=== PATIENT | female | born 1945 | race Caucasian/White ===

== ENCOUNTER 2022-04-16 17:56 | Emergency (ER) | payer MEDICARE, OTHER, SELFPAY ==
[2022-04-16 19:15] VITALS: BP 141/52; PULSE 82; RESP 16; TEMP 36.7; O2SAT 96; BMI 31.5
== END 2022-04-16 21:57 | disposition left against medical advice (07) ==
LOC: HO.ED 21:56
PROVIDERS: Emergency Provider Emergency Medicine; PCP Family Medicine
DX: R10.31 Right lower quadrant pain (principal); G89.18 Other acute postprocedural pain; Z98.61 Coronary angioplasty status
CPT/HCPCS: 99281

== ENCOUNTER 2023-10-31 15:58 | Inpatient (IN) | payer MEDICARE, SELFPAY ==
--- NOTE | ~2023-10-31 | XR_ITS ---
EXAMINATION: XR chest 1V CLINICAL INFORMATION: Shortness of breath COMPARISON: None TECHNIQUE: Single portable frontal view. Tubes and lines: None Lungs and pleura: Diffuse increased interstitial lung marking and peribronchial cuffing might be a small airway disease such as bronchiolitis or interstitial pneumonitis, versus interstitial lung disease versus less likely interstitial edema. No dense focal consolidation pneumonia. Prominent eliezer bilaterally could be vascular and/or reactive adenopathy. Heart and mediastinum: The mediastinum is within normal limits.. Bones/soft tissue: Skeletal structures included are normal for patient's age. XR/XR chest 1V IMPRESSION: Diffuse increased interstitial lung marking and peribronchial cuffing might be a small airway disease such as bronchiolitis or interstitial pneumonitis, versus interstitial lung disease versus less likely interstitial edema. Prominent eliezer bilaterally might be vascular and/or reactive adenopathy, Follow-up chest x-ray one month after completion of treatment recommended to ensure complete clearance and exclude underlying pathology. No dense focal consolidation pneumonia. No significant pleural effusion.
--- NOTE | ~2023-10-31 | XR_ITS ---
EXAMINATION: XR CHEST CLINICAL INFORMATION: Abdominal pain. End-stage renal disease. COMPARISON: 10/31/2023 TECHNIQUE: Frontal view of the chest was obtained. FINDINGS: The lung volumes are low. The cardiomediastinal silhouette is stable. There is mild diffuse increased markings similar to previous. There is no focal lung consolidation or pleural effusion. The bony structures and soft tissues are stable. XR/XR chest 1V IMPRESSION: Low lung volumes. No acute cardiopulmonary process. No significant interval change.
--- NOTE | ~2023-10-31 | CT_ITS ---
EXAMINATION: CT ABDOMEN AND PELVIS WITHOUT CONTRAST CLINICAL INFORMATION: End-stage renal disease. Pain. COMPARISON: None available. TECHNIQUE: Multidetector volumetric imaging was performed from the superior aspect of the liver through the pubic symphysis. Sagittal and coronal reformatted images were obtained on the technologist's workstation. This CT examination was performed using dose optimization techniques as appropriate, variously including the following: *Automated exposure control *Adjustment of mA and/or kV according to patient size (this includes techniques or standardized protocols for targeted exams where dose is matched to indication/reason for exam; i.e. extremities or head) *Use of iterative reconstruction technique DLP: 688 mGy-cm FINDINGS: LUNG BASES: There is basilar interstitial prominence and scattered groundglass opacities. LIVER, GALLBLADDER, AND BILIARY TREE: The liver is enlarged measuring up to 22 cm. No focal hepatic lesion or biliary ductal dilatation is present. The gallbladder is unremarkable with no evidence of radiopaque gallstones, gallbladder wall thickening, or obvious pericholecystic inflammatory changes. PANCREAS: Unremarkable. SPLEEN: Unremarkable. ADRENAL GLANDS: Unremarkable. KIDNEYS AND URETERS: The right kidney is severely atrophic. Left kidney is small measuring up to 7.3 cm. Multiple left renal calculi are noted measuring up to 5 mm. There are a few small left renal cysts measuring up to 1.5 cm. There is no hydronephrosis. BLADDER: Unremarkable. GASTROINTESTINAL TRACT: There are diverticula of the sigmoid colon without diverticulitis. The appendix is visualized and is within normal limits. ABDOMINAL WALL: There is soft tissue anasarca. LYMPH NODES: Numerous small nonspecific retroperitoneal lymph nodes are noted measuring up to 1.3 cm. VASCULAR: There is atherosclerotic plaque of the abdominal aorta and proximal branches. Renal vascular calcification is noted. PELVIC VISCERA: Unremarkable. OSSEOUS STRUCTURES: The bony structures and sclerotic/heterogeneous. There is moderate bilateral hip degenerative change. CT/CT abdomen pelvis wo IV con IMPRESSION: 1. Hepatomegaly. 2. Atrophic right kidney. Small left kidney with multiple nonobstructing renal calculi. 3. Diverticulosis without diverticulitis. 4. Bibasilar interstitial prominence and scattered groundglass opacities. Suspect edema. 5. Soft tissue anasarca. 6. Sclerotic/heterogeneous bony structures. Suspect renal osteodystrophy. Fleischner guidelines were followed.
[2023-10-31 16:05] VITALS: BP 113/91; BP 133/80; PULSE 116; PULSE 120; RESP 22; TEMP 36.9; O2SAT 90; O2SAT 92; BMI 31.0
--- NOTE | 2023-10-31 16:11 | ECG_ITS ---
Test Reason : UPPER RESP Blood Pressure : / mmHG Vent. Rate : 106 BPM Atrial Rate : 000 BPM P-R Int : 000 ms QRS Dur : 094 ms QT Int : 352 ms P-R-T Axes : 000 043 004 degrees QTc Int : 467 ms Atrial fibrillation with rapid ventricular response Nonspecific T wave abnormality Abnormal ECG No previous ECGs available Referred By: Shyanne Day Electronically Signed By:KIRBY WALKER MD
--- NOTE | 2023-10-31 16:14 | ED_ITS ---
HPI - URI/Sore Throat General Chief Complaint: Upper Respiratory Symptoms Stated Complaint: sob x 1 week, fever, chills, cough Time Seen by Provider: 10/31/23 16:10 History of Present Illness HPI Narrative: Patient is a 77-year-old female with a history of end-stage renal disease currently on dialysis Monday. Patient missed her dialysis on Monday did receive her dialysis this morning. Now is complaining of coughing upper respiratory symptoms that has been ongoing for about a week. Subjective fever at home. No actual temperature was taken. There is no rash. There has no abdominal pain. There has no diaphoresis. Patient came to the ED after getting dialysis earlier Related Data Allergies Allergy/AdvReac Type Severity Reaction Status Date / Time gluten Allergy Unknown Verified 04/16/22 19:15 Review of Systems 2 Review of Systems: Positive shortness of breath positive coughing upper respiratory symptoms Positive subjective fever Yes all other systems are reviewed and are negative PMFSH Past Medical History Attestation statement: The following information was validated with the patient. Social History Social History Smoked in Last 30 Days: No Use of substances other than those prescribed or required for medical reasons: No Advance Directives: No Advance Directives Information Provided: No Physical Exam 2 Vital Signs: Vital Signs: Last Vital Signs Temp 98.0 F 10/31/23 18:19 Pulse 100 10/31/23 18:19 Resp 20 10/31/23 18:19 BP 113/74 10/31/23 18:19 Pulse Ox 94 10/31/23 18:19 O2 Del Method Nasal Cannula 10/31/23 18:19 O2 Flow Rate 2 10/31/23 18:19 Oxygen Flow Rate 2 10/31/23 16:21 BMI result Body Mass Index 31.0 Appearance: Alert. Oriented X3. No acute distress. Eyes: Pupils equal, round and reactive to light. ENT: Pharynx normal. Neck: Normal inspection. Neck supple. No lymph nodes noted. No crepitus CVS: Irregularly irregular Respiratory: Diminished breath sounds bilaterally Abdomen: Soft and nontender. No rigidity. No distention. good BS x4 Skin: Skin warm and dry. Normal skin color. Normal skin turgor. Extremities: No lower extremity edema. Neurovascular intact to all extremities. No Lacerations. No Rash Neuro: Oriented X 3. No motor deficit. No sensory deficit. Moving all extermities. No slurred speech Medications Administered Discontinued Medications Generic Name Dose Route Start Last Admin Trade Name Chucho PRN Reason Stop Dose Admin Albuterol Sulfate 2.5 mg/ 0 mg 10/31/23 16:11 10/31/23 16:22 Albuterol/Ipratropium 3 ml INHALE 10/31/23 16:12 1 dose ONCE ONE Administration Guaifenesin/Dextromethorphan 5 ml 10/31/23 17:06 10/31/23 17:31 Guaifenesin Dm 100/10/5 Ml 5 Ml Syrup PO 10/31/23 17:07 5 ml ONCE ONE Administration Methylprednisolone Sodium Succinate 125 mg 10/31/23 16:11 10/31/23 17:31 Methylprednisolone Sod Succ 125 Mg/2 Ml Vial IVPUSH 10/31/23 16:12 125 mg ONCE ONE Administration Medical Decision Making Medical Decision Making MDM Narrative: Patient's chest x-ray showed an increase in interstitial marking. Positive coughing upper respiratory symptoms. Patient electrolyte consistent with end- stage renal disease. However her potassium is controlled no evidence for anemia. Patient's blood gas showed a normal pH and normal pCO2 there has no evidence for CO2 retention patient's flu RSV COVID came back positive for influenza likely the cause of patient's coughing upper respiratory symptoms. However patient has a low O2 sat of 89-90 on room air despite giving steroids and nebulized treatment. She has not a candidate for Tamiflu because his symptoms have been ongoing for about 5 days. It was discussed with the hospitalist team. Will admit patient for further evaluation. Differential Diagnosis Differential Diagnoses: The differential diagnosis associated with the presentation includes Influenza Admission/Observation Consideration of admission/observation: Escalation of care including admission/observation considered Consult Healthcare Provider Management of the patient was discussed with: Hospitalist Lab Data [facility] Lab Attestation statement: I reviewed the patient's lab results. 10/31/23 16:43 10/31/23 16:43 Labs: Lab Results 10/31/23 10/31/23 10/31/23 Range/Units 16:43 16:43 16:44 WBC 6.2 (4.8-10.8) X10*3/uL RBC 3.57 L (4.20-5.50) X10*6/uL Hgb 11.6 L (12.0-16.0) g/dl Hct 33.5 L (37.0-47.0) % MCV 93.8 (80.0-98.0) fL MCH 32.5 (27.0-33.0) pg MCHC 34.6 (31.0-35.0) g/dl RDW 15.1 (11.0-16.0) % Plt Count 161 (160-400) X10*3/uL MPV 10.5 (9.4-12.3) fL Immature Gran % (Auto) 1.1 H (0.0-0.4) % Neut % (Auto) 75.7 H (45-73) % Lymph % (Auto) 11.1 L (20-40) % [place] % (Auto) 9.8 (2-11) % Eos % (Auto) 1.8 (0-4) % Baso % (Auto) 0.5 (0-2) % Lymph # (Auto) 0.7 L (1.2-4.9) X10*3/uL [place] # (Auto) 0.6 (0.1-1.2) X10*3/uL Eos # (Auto) 0.1 (0.0-0.4) X10*3/uL Baso # (Auto) 0.0 (0.0-0.2) X10*3/uL Abs Immat Gran (auto) 0.07 H (0.00-0.03) X10*3/uL Absolute Neuts (auto) 4.7 (2.0-8.3) x10*3/uL Absolute Nucleated RBC 0.000 (0.0-0.012) X10*3/uL Nucleated RBC % (auto) 0.0 (0.0-0.2) /100WBC VBG pH (7.32-7.43) VBG pCO2 mmHg VBG pO2 mmHg VBG HCO3 (22-26) mmol/L VBG O2 Saturation % VBG Base Excess mmol/L Sodium 140 (135-145) mmol/L Potassium 3.3 (3.3-5.1) mmol/L Chloride 95 L (96-108) mmol/L Carbon Dioxide 30 H (22-29) mmol/L Anion Gap 18 (12-20) BUN 27 H (9-16) mg/dL Creatinine 6.25 H* (0.5-1.4) mg/dL Estim Creat Clear Calc 8.2 Estimated GFR 7 Random Glucose 93 (60-115) mg/dL Lactic Acid 1.4 (0.5-2.0) mmol/L Calcium 8.5 8.6 (8.4-10.2) mg/dL Phosphorus 3.4 (2.7-4.5) mg/dL Magnesium 1.7 (1.6-2.6) mg/dL Total Bilirubin 0.6 (0.0-1.0) mg/dL Direct Bilirubin 0.3 (0.0-0.5) mg/dL AST 14 (5-31) U/L ALT 9 (0-31) U/L Alkaline Phosphatase 112 (39-117) U/L Troponin I High Sens 30.0 H (<3.5-17.0) ng/L Total Protein 6.9 (6.5-8.0) g/dL Albumin 3.5 (3.5-5.0) g/dL Influenza Type A (PCR) (Negative) Influenza Type B (PCR) (Negative) RSV RNA Qual (PCR) (Negative) SARS-CoV-2 RNA (RT-PCR) (Negative) 10/31/23 10/31/23 Range/Units 16:48 17:08 WBC (4.8-10.8) X10*3/uL RBC (4.20-5.50) X10*6/uL Hgb (12.0-16.0) g/dl Hct (37.0-47.0) % MCV (80.0-98.0) fL MCH (27.0-33.0) pg MCHC (31.0-35.0) g/dl RDW (11.0-16.0) % Plt Count (160-400) X10*3/uL MPV (9.4-12.3) fL Immature Gran % (Auto) (0.0-0.4) % Neut % (Auto) (45-73) % Lymph % (Auto) (20-40) % [place] % (Auto) (2-11) % Eos % (Auto) (0-4) % Baso % (Auto) (0-2) % Lymph # (Auto) (1.2-4.9) X10*3/uL [place] # (Auto) (0.1-1.2) X10*3/uL Eos # (Auto) (0.0-0.4) X10*3/uL Baso # (Auto) (0.0-0.2) X10*3/uL Abs Immat Gran (auto) (0.00-0.03) X10*3/uL Absolute Neuts (auto) (2.0-8.3) x10*3/uL Absolute Nucleated RBC (0.0-0.012) X10*3/uL Nucleated RBC % (auto) (0.0-0.2) /100WBC VBG pH 7.55 H (7.32-7.43) VBG pCO2 40 mmHg VBG pO2 91 mmHg VBG HCO3 35 H (22-26) mmol/L VBG O2 Saturation 95.0 % VBG Base Excess 11.9 mmol/L Sodium (135-145) mmol/L Potassium (3.3-5.1) mmol/L Chloride (96-108) mmol/L Carbon Dioxide (22-29) mmol/L Anion Gap (12-20) BUN (9-16) mg/dL Creatinine (0.5-1.4) mg/dL Estim Creat Clear Calc Estimated GFR Random Glucose (60-115) mg/dL Lactic Acid (0.5-2.0) mmol/L Calcium (8.4-10.2) mg/dL Phosphorus (2.7-4.5) mg/dL Magnesium (1.6-2.6) mg/dL Total Bilirubin (0.0-1.0) mg/dL Direct Bilirubin (0.0-0.5) mg/dL AST (5-31) U/L ALT (0-31) U/L Alkaline Phosphatase (39-117) U/L Troponin I High Sens (<3.5-17.0) ng/L Total Protein (6.5-8.0) g/dL Albumin (3.5-5.0) g/dL Influenza Type A (PCR) POSITIVE A (Negative) Influenza Type B (PCR) NEGATIVE (Negative) RSV RNA Qual (PCR) NEGATIVE (Negative) SARS-CoV-2 RNA (RT-PCR) NEGATIVE (Negative) Independent Interpretation I performed an independent interpretation of an: EKG (EKG showed an atrial fibrillation heart rate is 110 there has no acute ST segment elevation noted) and Plain X-Ray (Chest x-ray showed some increased interstitial marking no norman congestive heart failure no focal infiltrate) Radiology Impression Discussion of test interpretation with radiology: I have reviewed the radiologist's reading. External Record Review External record reviewed: Inpatient record Chronic Conditions End-stage renal disease Social Determinants Patient?s care significantly limited by Social Determinants of Health including: Problems related to primary support group Critical Care Time Critical Care Time Critical Care Time: Yes Total Critical Care Time: 40 Attestation: I have personally provided 40 minutes of critical care time exclusive of time spent on separately billable procedures. ?Time includes review of lab data, radiology results, discussion with consultants, and monitoring for potential decompensation. ?Interventions were performed as documented above Discharge Plan Discharge Clinical Impression: Hypoxia Patient Disposition: Admitted As Inpatient
[2023-10-31 16:21] VITALS: BP 113/94; PULSE 112; RESP 22; TEMP 36.8; O2SAT 96; O2SAT 98
[2023-10-31 16:22] VITALS: PULSE 113; RESP 22; O2SAT 95
[2023-10-31] MEDS: Albuterol Sulfate 2.5 MG, Albuterol/Iprat 2.5/0.5MG 3 ML 3 ML INHALE (16:22)
--- NOTE | 2023-10-31 16:22 | PC.NURSE ---
Pt presents from home via EMS, reports cough, fevers, malaise and increased WOB X1 week. SOB occurs with long periods of coughing and exertion, no home O2 at baseline. Pt denies pain, N/V/D. Pt did have full dialysis treatment this morning, has fistula in left arm. EMS placed 22G in right wrist and placed pt on 2L O2. Pt alert and oriented, breathing even and noted to be elevated and labored when coughing. Pt reports dry cough with nothing coming up. Skin dry and warm. RA SPO2 noted to be 90%, placed on 2L O2 NC via MDs orders and improves to 98%. Placed on bedside court recording monitor, afib.
[2023-10-31 16:49] LABS: MANUAL DIFF FLAG NO
[2023-10-31 16:53] LABS: Basophils Percent Auto 0.5 % (0-2); Eosinophils Absolute Auto 0.1 X10*3/uL (0.0-0.4); Eosinophils Percent Auto 1.8 % (0-4); Hematocrit 33.5 % (37.0-47.0); Hemoglobin 11.6 g/dl (12.0-16.0); Imm Gran Abs Auto 0.07 X10*3/uL (0.00-0.03); Imm Gran Pct Auto 1.1 % (0.0-0.4); Lymphocytes Absolute Auto 0.7 X10*3/uL (1.2-4.9); Lymphocytes Percent Auto 11.1 % (20-40); Mean Corpuscular HGB Conc 34.6 g/dl (31.0-35.0); Mean Corpuscular Hemoglobin 32.5 pg (27.0-33.0); Mean Corpuscular Volume 93.8 fL (80.0-98.0); Mean Platelet Volume 10.5 fL (9.4-12.3); Monocytes Absolute Auto 0.6 X10*3/uL (0.1-1.2); Monocytes Percent Auto 9.8 % (2-11); Neutrophils Absolute Auto 4.7 x10*3/uL (2.0-8.3); Neutrophils Percent Auto 75.7 % (45-73); Platelet Count 161 X10*3/uL (160-400); Red Blood Count 3.57 X10*6/uL (4.20-5.50); Red Cell Distribution Width 15.1 % (11.0-16.0); White Blood Count 6.2 X10*3/uL (4.8-10.8)
[2023-10-31 17:04] LABS: Lactic Acid 1.4 mmol/L (0.5-2.0)
[2023-10-31 17:05] LABS: Calcium 8.6 mg/dL (8.4-10.2); Magnesium 1.7 mg/dL (1.6-2.6); Phosphorus 3.4 mg/dL (2.7-4.5)
[2023-10-31 17:10] LABS: Alanine Aminotransferase 9 U/L (0-31); Albumin Level 3.5 g/dL (3.5-5.0); Alkaline Phosphatase 112 U/L (39-117); Anion Gap 18 (12-20); Aspartate Amino Transferase 14 U/L (5-31); Bilirubin Direct 0.3 mg/dL (0.0-0.5); Bilirubin Total 0.6 mg/dL (0.0-1.0); Blood Urea Nitrogen 27 mg/dL (9-16); Calcium 8.5 mg/dL (8.4-10.2); Carbon Dioxide 30 mmol/L (22-29); Chloride 95 mmol/L (96-108); Creatinine Clr Calc Pharmacy 8.2; Estimated Glomerular Filt Rate 7; Glucose Random 93 mg/dL (60-115); Potassium 3.3 mmol/L (3.3-5.1); Sodium 140 mmol/L (135-145); Total Protein 6.9 g/dL (6.5-8.0)
[2023-10-31 17:15] LABS: Venous Blood Gas Refer to POC result
[2023-10-31 17:15] LABS: VBG Base Excess 11.9 mmol/L; VBG HCO3 35 mmol/L (22-26); VBG pCO2 40 mmHg; VBG pH 7.55 (7.32-7.43); VBG pO2 91 mmHg
[2023-10-31] MEDS: guaiFENesin DM 100/10/5 ML 5 ML SYRUP PO (17:31)
[2023-10-31] MEDS: methylPREDNISolone Sod Succ 125 MG/2 ML VIAL IVPUSH (17:31)
[2023-10-31 17:32] LABS: Influenza A PCR POSITIVE (Negative); Influenza B PCR NEGATIVE (Negative); Resp Syncy Virus RNA Qual PCR NEGATIVE (Negative); SARS COV2 PCR INHOUSE NEGATIVE (Negative)
[2023-10-31 18:19] VITALS: BP 113/74; PULSE 100; RESP 20; TEMP 36.7; O2SAT 94
[2023-10-31 19:49] VITALS: O2SAT 93
--- NOTE | 2023-10-31 19:49 | PC.NURSE ---
Assumed care of pt. Pt lying on stretcher, no acute distress at this time. Pt at bedside. Pt currently off O2 to blow nose, O2 charted by this RN on room air, pt states prefers to not wear O2 if possible. aware. Preparing for admission.
--- NOTE | 2023-10-31 21:08 | PHA.MEDREC ---
Addendum entered by Jessica Ceballos [facility] 11/01/23 09:22: called Niels (contact) cinacalet 30 mg was reported every other day, added and verified to med list. Original Note: Pharmacy Consult ? Medication Reconciliation Pharmacy has completed the medication reconciliation. Patient reported medications. patient could not remember one of her diaylsis medicaions that she takes every other day that is 30 mg. She is gonna have her bring in med tomorrow. [facility] will follow-up on med. Patient would be due for this medication on 11/01/23. Xuan Bernabe, TyronD
[2023-10-31] MEDS: methylPREDNISolone Sod Succ 125 MG/2 ML VIAL 80 MG IVPUSH (21:10)
[2023-10-31] MEDS: Azithromycin 500 MG in 0.9 % Sodium Chloride 250 ML 125 MG IV (21:11)
[2023-10-31] MEDS: Albuterol/Iprat 2.5/0.5MG 3 ML AMPUL.NEB INHALE (21:57)
[2023-10-31 21:58] VITALS: PULSE 104; RESP 18; O2SAT 93
[2023-10-31] MEDS: guaiFENesin DM 600/30 1 TAB TAB.ER.12H 2 TAB PO (23:10)
[2023-11-01] VITALS (11 sets, daily range): BP systolic 90–140; BP diastolic 65–75; PULSE 86–140; RESP 15–20; TEMP 36.1–36.9; O2SAT 92–100; BMI 31.1
--- NOTE | 2023-11-01 | ECG_ITS ---
Test Reason : a fib Blood Pressure : / mmHG Vent. Rate : 110 BPM Atrial Rate : 000 BPM P-R Int : 000 ms QRS Dur : 104 ms QT Int : 350 ms P-R-T Axes : 000 069 -64 degrees QTc Int : 473 ms Atrial fibrillation with rapid ventricular response with premature ventricular or aberrantly conducted complexes Nonspecific ST and T wave abnormality Abnormal ECG When compared with ECG of 31-OCT-2023 16:27, Nonspecific T wave abnormality now evident in Anterior leads Referred By: Kolby Ferguson Electronically Signed By:KIRBY WALKER MD
[2023-11-01 00:01] LABS: Troponin-I High Sensitivity 36.1 ng/L (<3.5-17.0)
--- NOTE | 2023-11-01 00:05 | PM.IMHP ---
History of Present Illness Date of Service: 10/31/23 Attending physician on admission: Kolby Ferguson Chief Complaint: Cough Ayaka Christina is a 77 years old woman with past medical history significant for ESRD on HD (TTS) presents to the emergency department complaining of 6 day history of productive cough associated with some shortness on breath and subjective fever. She denied any headache, chills or dizziness. She also denied any acute gastrointestinal or genitourinary symptoms. Denies tobacco smoking, alcohol abuse or illicit drug use. There is no history of recent contact with ill people or travel. She had her hemodialysis session today and was completed without complications. In the ED, she was found to have tachypnea and low-grade tachycardia. There is no hypotension. Her oxygen saturation dropped to 88% on room air and currently requiring 2 L/min of supplemental oxygen via nasal cannula. Blood workup showed no leukocytosis. BUN is 27 and creatinine 6.25. CO2 is elevated. LFTs are normal. There is no hyperkalemia or lactic acidosis. Troponin is elevated x2 (30.0 --> 36.1). Venous blood gas does not show respiratory acidosis. CXR showed diffuse increased interstitial lung markings and peribronchial cuffing (small airway disease versus interstitial lung disease versus less likely interstitial edema). Viral testing is positive for influenza. ED tx: Solu-Medrol 125 mg IV, albuterol/p.m. 0.5 mg, Robitussin DM 5 mL p.o. Review of Systems Review of Systems: All 12 systems were reviewed and normal except as noted in HPI. [facility] Medical History (Updated 11/01/23 @ 00:36 by Kolby Ferguson MD) Chronic disease anemia Hypotension End-stage renal disease on hemodialysis Social History Patient Tobacco Use Status: Never used Tobacco Smoked in Last 30 Days: No Use of substances other than those prescribed or required for medical reasons: No Advance Directives: No Advance Directives Information Provided: No Nutrition Risks: No Nutritional Risk Meds Allergies Allergy/AdvReac Type Severity Reaction Status Date / Time gluten Allergy Unknown Verified 04/16/22 19:15 Active Medications: Current Medications Acetaminophen (Acetaminophen 325 Mg Tablet) 650 mg PO Q6H PRN PRN Reason: Pain, Mild (Pain Scale 1-3) Albuterol/Ipratropium (Albuterol/Iprat 2.5/0.5mg 3 Ml Ampul.Neb) 3 ml INHALE Q4H [facility] Benzonatate (Benzonatate 100 Mg Capsule) 200 mg PO TID PRN PRN Reason: Cough Guaifenesin/Dextromethorphan (Guaifenesin Dm 600/30 1 Tab Tab.Er.12h) 2 tab PO BID [facility] Last Admin: 10/31/23 23:10 Dose: 2 tab Heparin Sodium (Porcine) (Heparin Sodium,Porcine 5,000 Unit/Ml Vial) 5,000 unit SUBCUT Q8H [facility] Azithromycin 500 mg/ Sodium (Chloride) 250 mls @ 125 mls/hr IV Q24H [facility] Last Infusion: 10/31/23 23:15 Dose: Infused Sodium Chloride (0.9 % Sodium Chloride Flush 3 Ml Syringe) 3 ml IVFLUSH QSHIFT [facility] Home Medications Medication Instructions Recorded Confirmed Last Taken Type aspirin 81 mg chewable tablet 81 mg PO BEDTIME 10/31/23 10/31/23 Unknown History midodrine 5 mg tablet 5 mg PO DAILY PRN Hypotension 10/31/23 10/31/23 Unknown History prochlorperazine maleate 10 mg 10 mg PO TID PRN nausea 10/31/23 10/31/23 Unknown History tablet Physical Exam Vital Signs and Narrative: Vital Signs: Last Vital Signs Temp 98.0 F 10/31/23 18:19 Pulse 104 H 10/31/23 21:58 Resp 18 10/31/23 21:58 BP 113/74 10/31/23 18:19 Pulse Ox 93 10/31/23 19:49 O2 Del Method Room Air 10/31/23 19:49 O2 Flow Rate 2 10/31/23 18:19 Oxygen Flow Rate 2 10/31/23 16:21 BMI result Body Mass Index 31.0 Constitutional - Awake and Alert, No apparent distress. Acutely ill. Cooperative and pleasant. HEENT - Pupils equally round. Normal sclerae. Moist oral mucosa Heart - tachycardia. Normal rate. No murmur. Lung - Normal lung expansion, Normal respiratory effort, No respiratory distress. Tachypnea. Bilateral rhonchi + end expiratory wheezing. Abdomen - NT / ND; +BS; No rebound or guarding Extremities - no calf tenderness bilaterally, no swelling. Left arm fistula. Musculoskeletal - Normal inspection, normal ROM Skin - Warm/Dry Neurological - Alert & oriented x3. No focal weakness. Normal speech. Psychological - Appropriate affect Results Labs 10/31/23 16:43 10/31/23 16:43 Labs: Laboratory Results - last 24 hr 10/31/23 10/31/23 10/31/23 16:43 16:43 16:44 MCV 93.8 MCH 32.5 MCHC 34.6 RDW 15.1 Plt Count 161 MPV 10.5 Immature Gran % (Auto) 1.1 H Neut % (Auto) 75.7 H Lymph % (Auto) 11.1 L [place] % (Auto) 9.8 Eos % (Auto) 1.8 Baso % (Auto) 0.5 Lymph # (Auto) 0.7 L [place] # (Auto) 0.6 Eos # (Auto) 0.1 Baso # (Auto) 0.0 Abs Immat Gran (auto) 0.07 H Absolute Neuts (auto) 4.7 Absolute Nucleated RBC 0.000 Nucleated RBC % (auto) 0.0 VBG pH VBG pCO2 VBG pO2 VBG HCO3 VBG O2 Saturation VBG Base Excess Anion Gap 18 Estim Creat Clear Calc 8.2 Estimated GFR 7 Random Glucose 93 Lactic Acid 1.4 Calcium 8.5 8.6 Phosphorus 3.4 Magnesium 1.7 Total Bilirubin 0.6 Direct Bilirubin 0.3 AST 14 ALT 9 Alkaline Phosphatase 112 Troponin I High Sens 30.0 H Total Protein 6.9 Albumin 3.5 Influenza Type A (PCR) Influenza Type B (PCR) RSV RNA Qual (PCR) SARS-CoV-2 RNA (RT-PCR) 10/31/23 10/31/23 10/31/23 16:48 17:08 23:37 MCV MCH MCHC RDW Plt Count MPV Immature Gran % (Auto) Neut % (Auto) Lymph % (Auto) [place] % (Auto) Eos % (Auto) Baso % (Auto) Lymph # (Auto) [place] # (Auto) Eos # (Auto) Baso # (Auto) Abs Immat Gran (auto) Absolute Neuts (auto) Absolute Nucleated RBC Nucleated RBC % (auto) VBG pH 7.55 H VBG pCO2 40 VBG pO2 91 VBG HCO3 35 H VBG O2 Saturation 95.0 VBG Base Excess 11.9 Anion Gap Estim Creat Clear Calc Estimated GFR Random Glucose Lactic Acid Calcium Phosphorus Magnesium Total Bilirubin Direct Bilirubin AST ALT Alkaline Phosphatase Troponin I High Sens 36.1 H Total Protein Albumin Influenza Type A (PCR) POSITIVE A Influenza Type B (PCR) NEGATIVE RSV RNA Qual (PCR) NEGATIVE SARS-CoV-2 RNA (RT-PCR) NEGATIVE Imaging Radiologist's Impressions: Impressions Chest X-Ray 10/31/23 17:14 IMPRESSION: Diffuse increased interstitial lung marking and peribronchial cuffing might be a small airway disease such as bronchiolitis or interstitial pneumonitis, versus interstitial lung disease versus less likely interstitial edema. Prominent eliezer bilaterally might be vascular and/or reactive adenopathy, Follow-up chest x-ray one month after completion of treatment recommended to ensure complete clearance and exclude underlying pathology. No dense focal consolidation pneumonia. No significant pleural effusion. Assessment and Plan (1) Hypoxic respiratory failure: Qualifiers: Chronicity: acute Qualified Code(s): J96.01 - Acute respiratory failure with hypoxia Status: Acute (2) End-stage renal disease on hemodialysis: Status: Acute (3) Metabolic alkalosis: Status: Acute (4) Chronic disease anemia: Status: Acute Plan Ayaka Christina is a 77 years old woman admitted with: Hypoxic respiratory failure secondary to influenza infection causing acute bronchitis. Admit to hospitalist service. Telemetry. Pulse oximetry. Continue supplemental oxygen to keep O2 sats > 90%. Continue bronchodilator therapy and IV steroids. Empiric IV antibiotic therapy with azithromycin. Mucinex 2 tablets PO bid. Therapy with Tamiflu has not been considered as a symptoms started more than 48 hours ago. Metabolic alkalosis + hypochloremia. Likely contraction alkalosis due renal disease. Will give small bolus of NS. Patient might need low bicarb bath during HD. Continue to monitor bicarb. ESRD on HD. Nephrology consult for inpatient hemodialysis. History of hypotension. Takes midodrine as needed. Continue to monitor blood pressure. Chronic anemia likely secondary to end-stage renal disease. Continue to monitor. DVT prophylaxis: Heparin subcut Code status: Full Patient will need hospitalization for at least 2 midnights for hypoxic respiratory failure treatment with supplemental oxygen, IV steroids and bronchodilator therapy. Quality Stroke Does the patient have a stroke diagnosis?: No VTE Prior VTE?: No VTE Risk Level:: Medical - moderate - high VTE Device Contraindication: Treatment Not Indicated VTE Drug Contraindication: N/A - Med Ordered
[2023-11-01] MEDS: 0.9 % Sodium Chloride Flush 3 ML SYRINGE IVFLUSH ×3 (01:18→20:22)
[2023-11-01 05:29] LABS: Basophils Percent Auto 0.5 % (0-2); Eosinophils Percent Auto 0.5 % (0-4); Hematocrit 32.8 % (37.0-47.0); Hemoglobin 11.3 g/dl (12.0-16.0); Imm Gran Abs Auto 0.04 X10*3/uL (0.00-0.03); Lymphocytes Absolute Auto 0.5 X10*3/uL (1.2-4.9); Lymphocytes Percent Auto 11.3 % (20-40); MANUAL DIFF FLAG SCAN; Mean Corpuscular HGB Conc 34.5 g/dl (31.0-35.0); Mean Corpuscular Hemoglobin 33.1 pg (27.0-33.0); Mean Corpuscular Volume 96.2 fL (80.0-98.0); Mean Platelet Volume 11.8 fL (9.4-12.3); Monocytes Absolute Auto 0.1 X10*3/uL (0.1-1.2); Monocytes Percent Auto 2.5 % (2-11); NRBC Pct Auto 0.5 /100WBC (0.0-0.2); Neutrophils Absolute Auto 3.4 x10*3/uL (2.0-8.3); Neutrophils Percent Auto 84.2 % (45-73); PLT CLUMP 1; Red Blood Count 3.41 X10*6/uL (4.20-5.50); Red Cell Distribution Width 15.6 % (11.0-16.0); SCAN SMEAR FLAG 1
[2023-11-01 05:42] LABS: Alanine Aminotransferase 9 U/L (0-31); Albumin Level 3.2 g/dL (3.5-5.0); Alkaline Phosphatase 101 U/L (39-117); Anion Gap 21 (12-20); Aspartate Amino Transferase 15 U/L (5-31); Bilirubin Total 0.5 mg/dL (0.0-1.0); Blood Urea Nitrogen 36 mg/dL (9-16); Calcium 8.5 mg/dL (8.4-10.2); Carbon Dioxide 26 mmol/L (22-29); Chloride 95 mmol/L (96-108); Creatinine Clr Calc Pharmacy 6.7; Estimated Glomerular Filt Rate 5; Glucose Random 145 mg/dL (60-115); Potassium 3.8 mmol/L (3.3-5.1); Sodium 138 mmol/L (135-145); Total Protein 6.6 g/dL (6.5-8.0)
[2023-11-01 06:03] LABS: Platelet Count 146 X10*3/uL (160-400); SLIDE REVIEW VERIFIED
[2023-11-01] MEDS: Albuterol/Iprat 2.5/0.5MG 3 ML AMPUL.NEB INHALE ×4 (07:51→19:38)
--- NOTE | 2023-11-01 09:35 | MHC.CM.PN ---
PT REPORTS SHE LIVES WITH HER S/O WHO IS AT BEDSIDE SHE IS INDEPENDENT WITH CARE AND HAS NO SERVICES PT HAS A CANE AND A WALKER SHE USES PRN WHEN HER KNEE IS BOTHERING HER A COPY OF HER HCP HAS BEEN REQUESTED FROM [facility] [place], SHE WOULD LIKE TO CHANGE IT IF SUARJ IS NOT LISTED PCP; RANDAL ARZATE IMM DELIVERED DCP: HOME NO SERVICES S/O TO TRANSPORT
--- NOTE | 2023-11-01 09:39 | PC.NURSE ---
called pharmacy for missing meds
--- NOTE | 2023-11-01 10:18 | PC.NURSE ---
patient a&ox3, sitting at bedside, lungs course crackles to left upper/lower lobes, rt lung sounds clear/diminished- pt speaking in full sentences no dyspnea noted at rest, respirations equal/non labored, lt av fistula + bruit/thrill, pt staets she has dialysis tues, thurs, sat, vitals currently stable, flu precautions intact, family at bedside, call [facility] withn reach, will continue to monitor
[2023-11-01] MEDS: guaiFENesin DM 600/30 1 TAB TAB.ER.12H 2 TAB PO ×2 (10:30→20:19)
[2023-11-01] MEDS: Heparin Sodium,Porcine 5,000 UNIT/ML VIAL 5000 UNIT SUBCUT (10:30)
--- NOTE | 2023-11-01 11:22 | HO.PM.IMPN ---
Subjective Subjective Date of Service: 11/01/23 Review of Systems Follow Resp failure, flu no sob reports dry cough Physical Exam Vital Signs: Vital Signs: Last Vital Signs Temp 97.6 F 11/01/23 06:46 Pulse 105 H 11/01/23 10:18 Resp 20 11/01/23 10:18 BP 125/72 11/01/23 06:46 Pulse Ox 100 11/01/23 10:18 O2 Del Method Room Air 11/01/23 10:18 O2 Flow Rate 2 10/31/23 18:19 Oxygen Flow Rate 2 10/31/23 16:21 BMI result Body Mass Index 31.0 Appearing in no acute distress lung sounds are clear to auscultation heart regular rate rhythm, clear S1, S2 positive bowel sounds, abdomen is soft, nontender neuro patient is alert x3, no focal deficits Objective Data Active Medications Acetaminophen (Acetaminophen 325 Mg Tablet) 650 mg PO Q6H PRN PRN Reason: Pain, Mild (Pain Scale 1-3) Albuterol/Ipratropium (Albuterol/Iprat 2.5/0.5mg 3 Ml Ampul.Neb) 3 ml INHALE Q4H [facility] Last Admin: 11/01/23 11:20 Dose: 3 ml Documented By: TABITHA Aspirin (Aspirin 81 Mg Tab.Chew) 81 mg PO BEDTIME [facility] Benzonatate (Benzonatate 100 Mg Capsule) 200 mg PO TID PRN PRN Reason: Cough Guaifenesin/Dextromethorphan (Guaifenesin Dm 600/30 1 Tab Tab.Er.12h) 2 tab PO BID [facility] Last Admin: 11/01/23 10:30 Dose: 2 tab Documented By: BE Heparin Sodium (Porcine) (Heparin Sodium,Porcine 5,000 Unit/Ml Vial) 5,000 unit SUBCUT Q8H [facility] Last Admin: 11/01/23 10:30 Dose: 5,000 unit Documented By: BE Azithromycin 500 mg/ Sodium (Chloride) 250 mls @ 125 mls/hr IV Q24H [facility] Last Infusion: 10/31/23 23:15 Dose: Infused Documented By: JADEN Midodrine (Midodrine Hcl 5 Mg Tablet) 5 mg PO DAILY PRN PRN Reason: Hypotension Prochlorperazine Maleate (Prochlorperazine Maleate 5 Mg Tablet) 10 mg PO TID PRN PRN Reason: nausea Sodium Chloride (0.9 % Sodium Chloride Flush 3 Ml Syringe) 3 ml IVFLUSH QSHIFT [facility] Last Admin: 11/01/23 09:28 Dose: Not Given Documented By: BE Non-Admin Reason: See Note Labs 11/01/23 05:05 11/01/23 05:05 Labs: Laboratory Results - last 24 hr 10/31/23 10/31/23 10/31/23 16:43 16:43 16:44 MCV 93.8 MCH 32.5 MCHC 34.6 RDW 15.1 Plt Count 161 MPV 10.5 Immature Gran % (Auto) 1.1 H Neut % (Auto) 75.7 H Lymph % (Auto) 11.1 L Briscoe % (Auto) 9.8 Eos % (Auto) 1.8 Baso % (Auto) 0.5 Lymph # (Auto) 0.7 L Briscoe # (Auto) 0.6 Eos # (Auto) 0.1 Baso # (Auto) 0.0 Abs Immat Gran (auto) 0.07 H Absolute Neuts (auto) 4.7 Absolute Nucleated RBC 0.000 Nucleated RBC % (auto) 0.0 Smear Tech's Comments VBG pH VBG pCO2 VBG pO2 VBG HCO3 VBG O2 Saturation VBG Base Excess Anion Gap 18 Estim Creat Clear Calc 8.2 Estimated GFR 7 Random Glucose 93 Lactic Acid 1.4 Calcium 8.5 8.6 Phosphorus 3.4 Magnesium 1.7 Total Bilirubin 0.6 Direct Bilirubin 0.3 AST 14 ALT 9 Alkaline Phosphatase 112 Troponin I High Sens 30.0 H Total Protein 6.9 Albumin 3.5 Influenza Type A (PCR) Influenza Type B (PCR) RSV RNA Qual (PCR) SARS-CoV-2 RNA (RT-PCR) 10/31/23 10/31/23 10/31/23 16:48 17:08 23:37 MCV MCH MCHC RDW Plt Count MPV Immature Gran % (Auto) Neut % (Auto) Lymph % (Auto) Briscoe % (Auto) Eos % (Auto) Baso % (Auto) Lymph # (Auto) Briscoe # (Auto) Eos # (Auto) Baso # (Auto) Abs Immat Gran (auto) Absolute Neuts (auto) Absolute Nucleated RBC Nucleated RBC % (auto) Smear Tech's Comments VBG pH 7.55 H VBG pCO2 40 VBG pO2 91 VBG HCO3 35 H VBG O2 Saturation 95.0 VBG Base Excess 11.9 Anion Gap Estim Creat Clear Calc Estimated GFR Random Glucose Lactic Acid Calcium Phosphorus Magnesium Total Bilirubin Direct Bilirubin AST ALT Alkaline Phosphatase Troponin I High Sens 36.1 H Total Protein Albumin Influenza Type A (PCR) POSITIVE A Influenza Type B (PCR) NEGATIVE RSV RNA Qual (PCR) NEGATIVE SARS-CoV-2 RNA (RT-PCR) NEGATIVE 11/01/23 05:05 MCV 96.2 MCH 33.1 H MCHC 34.5 RDW 15.6 Plt Count 146 L MPV 11.8 Immature Gran % (Auto) 1.0 H Neut % (Auto) 84.2 H Lymph % (Auto) 11.3 L Briscoe % (Auto) 2.5 Eos % (Auto) 0.5 Baso % (Auto) 0.5 Lymph # (Auto) 0.5 L Briscoe # (Auto) 0.1 Eos # (Auto) 0.0 Baso # (Auto) 0.0 Abs Immat Gran (auto) 0.04 H Absolute Neuts (auto) 3.4 Absolute Nucleated RBC 0.020 H Nucleated RBC % (auto) 0.5 H Smear Tech's Comments VERIFIED VBG pH VBG pCO2 VBG pO2 VBG HCO3 VBG O2 Saturation VBG Base Excess Anion Gap 21 H Estim Creat Clear Calc 6.7 Estimated GFR 5 Random Glucose 145 H Lactic Acid Calcium 8.5 Phosphorus Magnesium Total Bilirubin 0.5 Direct Bilirubin AST 15 ALT 9 Alkaline Phosphatase 101 Troponin I High Sens Total Protein 6.6 Albumin 3.2 L Influenza Type A (PCR) Influenza Type B (PCR) RSV RNA Qual (PCR) SARS-CoV-2 RNA (RT-PCR) Assessment and Plan (1) End-stage renal disease on hemodialysis: Status: Acute (2) Hypoxic respiratory failure: Status: Acute Plan 77 year old women admitted with resp failure secondary to influenza and possible bronchitis Hypoxic respiratory failure secondary to influenza A and bronchitis IV steroids Scheduled duonebs empiric azithromycin Mucinex for dry cough Tamiflu not started due to symptoms started a week ago Elevated troponin peaked at 36.1 no chest pain no ischemic changes on EKG Metabolic alkalosis VBG 7.55/40//35 likely from renal disease ESRD on dialysis nephro consult to set up dialysis Hx of hypotension on midodrine Chronic anemia secondary to renal disease DVT prophylaxis with heparin Full code continue hospitalization for at least 2 midnights for hypoxic respiratory failure treatment with supplemental oxygen, IV steroids and bronchodilator therapy. Quality Stroke Does the patient have a stroke diagnosis?: No VTE Prior VTE?: No VTE Risk Level:: Medical - moderate - high VTE Device Contraindication: Treatment Not Indicated VTE Drug Contraindication: N/A - Med Ordered
--- NOTE | 2023-11-01 11:28 | PC.NURSE ---
pt a&ox3, RT at bedside, personnel monitor intact, family at bedside, no c/o pain and discomfort at this time, call livingston within reach, will continue to monitor
[2023-11-01] MEDS: methylPREDNISolone Sod Succ 40 MG/ML VIAL IVPUSH ×2 (12:00→20:21)
--- NOTE | 2023-11-01 15:21 | PC.NURSE ---
Addendum entered by Adelaida Rowley RN 11/01/23 16:59: pt afib on monitor not sinus tach Original Note: patient a&ox3, pt sinus tach on rn cardiac, rt at bedside, call livingston within reach, pt awaiting bed, will continue to monitor
--- NOTE | 2023-11-01 16:47 | PC.NURSE ---
called pharmacy for missing meds
[2023-11-01] MEDS: Cinacalcet HCl 30 MG TABLET PO (18:15)
[2023-11-01] MEDS: Aspirin 81 MG TAB.CHEW PO (20:19)
[2023-11-01] MEDS: Azithromycin 500 MG in 0.9 % Sodium Chloride 250 ML 125 MG IV (21:40)
[2023-11-01] MEDS: Apixaban 2.5 MG TABLET PO (22:12)
[2023-11-01] MEDS: Metoprolol Tartrate 12.5 MG HALFTAB PO (22:12)
--- NOTE | 2023-11-02 | ECG_ITS ---
Test Reason : epigastric pain Blood Pressure : / mmHG Vent. Rate : 092 BPM Atrial Rate : 000 BPM P-R Int : 000 ms QRS Dur : 106 ms QT Int : 410 ms P-R-T Axes : 000 073 022 degrees QTc Int : 507 ms Atrial fibrillation with premature ventricular or aberrantly conducted complexes Incomplete right bundle branch block Prolonged QT Abnormal ECG When compared with ECG of 01-NOV-2023 20:25, Previous ECG has undetermined rhythm, needs review Nonspecific T wave abnormality, improved in Anterolateral leads Referred By: Kolby Ferguson Electronically Signed By:KIRBY WALKER MD
[2023-11-02] MEDS: Midodrine HCl 10 MG TABLET PO (00:07)
[2023-11-02] MEDS: Prochlorperazine Edisylate 10 MG/2 ML VIAL 5 MG IVPUSH (00:08)
[2023-11-02] MEDS: 0.9 % Sodium Chloride 500 ML 250 ML IV (00:18)
[2023-11-02 00:53] LABS: MANUAL DIFF FLAG NO
[2023-11-02 01:00] LABS: Basophils Percent Auto 0.1 % (0-2); Hematocrit 33.9 % (37.0-47.0); Hemoglobin 11.5 g/dl (12.0-16.0); Imm Gran Abs Auto 0.09 X10*3/uL (0.00-0.03); Imm Gran Pct Auto 1.2 % (0.0-0.4); Lymphocytes Absolute Auto 0.5 X10*3/uL (1.2-4.9); Lymphocytes Percent Auto 7.1 % (20-40); Mean Corpuscular HGB Conc 33.9 g/dl (31.0-35.0); Mean Corpuscular Hemoglobin 32.2 pg (27.0-33.0); Mean Platelet Volume 10.6 fL (9.4-12.3); Monocytes Absolute Auto 0.3 X10*3/uL (0.1-1.2); Monocytes Percent Auto 4.5 % (2-11); NRBC Pct Auto 0.4 /100WBC (0.0-0.2); Neutrophils Absolute Auto 6.6 x10*3/uL (2.0-8.3); Neutrophils Percent Auto 87.1 % (45-73); Platelet Count 211 X10*3/uL (160-400); Red Blood Count 3.57 X10*6/uL (4.20-5.50); Red Cell Distribution Width 15.4 % (11.0-16.0); White Blood Count 7.6 X10*3/uL (4.8-10.8)
[2023-11-02 01:12] LABS: Lactic Acid 2.5 mmol/L (0.5-2.0)
[2023-11-02 01:13] LABS: Alanine Aminotransferase 9 U/L (0-31); Albumin Level 3.6 g/dL (3.5-5.0); Alkaline Phosphatase 101 U/L (39-117); Anion Gap 23 (12-20); Aspartate Amino Transferase 10 U/L (5-31); Bilirubin Total 0.6 mg/dL (0.0-1.0); Blood Urea Nitrogen 52 mg/dL (9-16); Calcium 8.6 mg/dL (8.4-10.2); Carbon Dioxide 24 mmol/L (22-29); Chloride 94 mmol/L (96-108); Estimated Glomerular Filt Rate 5; Glucose Random 145 mg/dL (60-115); Magnesium 1.9 mg/dL (1.6-2.6); Potassium 3.2 mmol/L (3.3-5.1); Sodium 138 mmol/L (135-145)
[2023-11-02 01:19] LABS: Troponin-I High Sensitivity 22.1 ng/L (<3.5-17.0)
[2023-11-02 02:51] LABS: Reflex Lactate? Lactic Acid Added
[2023-11-02 04:00] VITALS: BP 150/60; PULSE 87; RESP 18; TEMP 36.2; O2SAT 94
[2023-11-02 05:59] LABS: ~Lactic Acid-LAB USE ONLY 2.3 mmol/L (0.5-2.0)
[2023-11-02 06:00] LABS: Reflex Lactate? 2 Y
[2023-11-02] MEDS: methylPREDNISolone Sod Succ 40 MG/ML VIAL IVPUSH ×2 (06:09→15:34)
[2023-11-02 06:21] LABS: ~Lactic Acid-LAB USE ONLY 1.8 mmol/L (0.5-2.0)
--- NOTE | 2023-11-02 07:00 | CA_ITS ---
Transthoracic Echocardiogram Patient (Last, First, Middle): Ayaka Christina E Gender: Female Date of : 1945 Age: 77 Procedure Date: 11/02/2023 Procedure Type: Transthoracic Echocardiogram Location: [facility] [place] Height: 165.1 cm Weight: 84.37 kg BSA: 1.92 m2 Heart Rate: 102 bpm BP: 123 / 63 mmHg Softball Winder: SB Referring MD: Kolby Ferguson MD Circular Saw Operator: Ron Crandall MD Symptoms: Rapid atrial fibrillation Study Quality: Fair but adequate apical images ECG Rhythm: Atrial Fibrillation w RVR Conclusions: - 1. [id number] LV systolic dysfunction with LVEF of 40 45%, difficult to interpret due to rapid heart rate 2. Biatrial enlargement, right greater than left 3. Severely dilated right ventricle with moderately reduced RV systolic function 4. Mild mitral regurgitation moderate tricuspid regurgitation 5. Moderately elevated right ventricular systolic pressure with mildly elevated right atrial pressures 6. No gross pericardial effusion Findings Left Ventricle Normal left ventricular cavity size. There is normal left ventricular wall thickness. The left ventricular systolic function is mild to moderately decreased. The visually estimated ejection fraction is between 40-45%. Spectral Doppler is indicative of a restrictive filling pattern. Right Ventricle Severely increased right ventricular cavity size. There is moderately decreased right ventricular systolic function. Atria The left atrium is moderately dilated. There is no evidence of interatrial shunt. The right atrium is severely dilated. Aortic Valve There is mild calcification of the aortic valve. There is mild aortic valve stenosis. The mean gradient is 5 mmHg. The aortic valve area is 1.72 cm2. There is no aortic valve regurgitation. Mitral Valve There is mild anterior and moderate posterior mitral leaflet thickening. The posterior mitral leaflet is immobile. There is moderate mitral annular calcification. There is mild mitral valve regurgitation. There is no mitral valve stenosis. Pulmonic Valve The pulmonic valve was not well visualized. Tricuspid Valve Likely normal tricuspid valve structure and function. There is moderate tricuspid valve regurgitation. Mildly elevated right atrial pressure. Moderate pulmonary hypertension is present. Great Vessels The pulmonary artery was not well visualized. There is no dilatation of the ascending aorta measuring 3.40 cm. Small plaque is seen in the sino tubular ridge. Venous The inferior vena cava is severely dilated and collapses greater than 50% with inspiration. Pericardium/Pleural There is no evidence of pericardial effusion. Prior Study Comparison No prior study available for comparison. Measurements 2D Linear Measurements IVSd: 0.84 0.6-0.9/0.6-1.0 cm LVIDd: 3.93 3.9-5.3/4.2-5.9 cm LVIDd Index: 2.05 2.4-3.2/2.2-3.1 cm/m2 LVIDs: 3.01 2.0-3.6 cm LVPWd: 0.56 0.7-1.1 cm LA Diam: 4.60 2.7-3.8/3.0-4.0 cm LAIDs Index: 2.40 1.5-2.3 cm/m2 LV Mass: 94.70 67-162/88-224 g LV Mass Index: 49.33 43-95/49-115 g/m2 LVOT Diam: 1.90 3.0+(-)1.3 cm 2D Systolic Function EF 4C: 40.60 >55% Mitral Valve MV Pk E: 1.53 E'Lateral: 6.15 E'Medial: 6.13 E/E' Med: 25.00 E/E' Lat: 24.90 Aortic Valve AoV Pk Leroy: 1.40 AoV Mn Leroy: 1.05 AoV VTI: 0.24 AoV Pk Grad: 8.00 Aov Mn Grad: 5.00 STEPHEN Cont.VTI: 1.72 LVOT LVOT Pk Leroy: 0.81 LVOT Mn Leroy: 0.61 LVOT VTI: 0.15 LVOT Pk Grad: 3.00 LVOT Mn Grad: 2.00 LVOT Diam: 1.90 LVOT Area: 2.84 Diastolic Function MV Pk E: 1.53 E'Medial: 6.13 E/E' Med: 25.00 E' Laterial: 6.15 E/E' Lat: 24.90 Right Ventricle TAPSE (mm): 11.20 TVS' Leroy: 7.00 Tricuspid Valve TR Pk Leroy: 3.26 TR Pk Grad: 43.00 RA Press: 8.00 RVSP: 51.00 Great Vessels Aorta Sinus of Valsalva: 3.00 2.0-3.5 cm Ao Asc: 3.40 2.1-3.4 cm Pulmonary Valve PV Pk Leroy: 0.88 Peak PV Grad: 3.00 Updated in Other Vendor System with Status of Final Ron Crandall MD electronically signed on 11/02/2023 3:07:13 PM with status of Final
[2023-11-02 07:16] VITALS: BP 123/63; PULSE 81; RESP 18; TEMP 36.3; O2SAT 93
--- NOTE | 2023-11-02 09:14 | PC.NURSE ---
pt went to dialysis at 0845 and is off unit
[2023-11-02 12:00] VITALS: BP 138/74; PULSE 98; RESP 18; TEMP 36.1; O2SAT 92
--- NOTE | 2023-11-02 12:22 | P.PNIM_ITS ---
Subjective Subjective Date of Service: 11/02/23 Interval History: seen and examined this morning follow up for Flu A had afib RVR overnight and some abdominal pain Abdominal pain resolved Breathing improved Review of Systems Review of Systems: Yes all other systems are reviewed and are negative Constitutional Constitutional: Denies chills and Denies fever(s) ENT Ears, Nose, Mouth, and Throat: Denies dizziness Cardiovascular Cardiovascular: Denies chest pain, Denies palpitations and Denies dyspnea Respiratory Respiratory: Denies dyspnea Neurologic Neurologic: Denies dizziness Endocrine Endocrine: Denies palpitations Physical Exam 2 Vital Signs: Vital Signs: Last Vital Signs Temp 97.4 F 11/02/23 07:16 Pulse 81 11/02/23 07:16 Resp 18 11/02/23 07:16 BP 123/63 11/02/23 07:16 Pulse Ox 93 11/02/23 07:16 O2 Del Method Room Air 11/02/23 07:16 O2 Flow Rate 2 10/31/23 18:19 Oxygen Flow Rate 2 10/31/23 16:21 BMI result Body Mass Index 31.1 Const: General: cooperative, comfortable, alert and awake Nutritional Appearance: overweight Orientation/consciousness: patient oriented x3 Resp: Effort & Inspection: normal respiratory effort, able to speak in complete sentences, no respiratory distress and no use of accessory muscles Cardio: Rate: regular rate Rhythm: abnormal rhythm irregularly irregular GI: Inspection: No distended Palpation (GI): Soft to palpation and nontender Neuro: General: patient oriented x3, moves all extremities and CN's II-XI intact bilaterally Extrem: General: Yes no pedal edema Objective Data Active Medications Acetaminophen (Acetaminophen 325 Mg Tablet) 650 mg PO Q6H PRN PRN Reason: Pain, Mild (Pain Scale 1-3) Apixaban (Apixaban 2.5 Mg Tablet) 2.5 mg PO BID [facility] Last Admin: 11/01/23 22:12 Dose: 2.5 mg Documented By: NATALIIA Aspirin (Aspirin 81 Mg Tab.Chew) 81 mg PO BEDTIME [facility] Last Admin: 11/01/23 20:19 Dose: 81 mg Documented By: NATALIIA Benzonatate (Benzonatate 100 Mg Capsule) 200 mg PO TID PRN PRN Reason: Cough Cinacalcet (Cinacalcet Hcl 30 Mg Tablet) 30 mg PO Q48H [facility] Last Admin: 11/01/23 18:15 Dose: 30 mg Documented By: JONATHAN Guaifenesin/Dextromethorphan (Guaifenesin Dm 600/30 1 Tab Tab.Er.12h) 2 tab PO BID [facility] Last Admin: 11/01/23 20:19 Dose: 2 tab Documented By: NATALIIA Azithromycin 500 mg/ Sodium (Chloride) 250 mls @ 125 mls/hr IV Q24H [facility] Last Infusion: 11/01/23 23:58 Dose: Infused Documented By: NATALIIA Levalbuterol HCl (Levalbuterol Hcl 1.25 Mg/3 Ml Vial.Neb) 1.25 mg INHALE Q4H PRN PRN Reason: Wheezing Methylprednisolone Sodium Succinate (Methylprednisolone Sod Succ 40 Mg/Ml Vial) 40 mg IVPUSH Q8H [facility] Last Admin: 11/02/23 06:09 Dose: 40 mg Documented By: NATALIIA Metoprolol Tartrate (Metoprolol Tartrate 12.5 Mg Halftab) 12.5 mg PO BID [facility]; Protocol Last Admin: 11/01/23 22:12 Dose: 12.5 mg Documented By: NATALIIA Midodrine (Midodrine Hcl 5 Mg Tablet) 5 mg PO BID [facility] Pantoprazole Sodium (Pantoprazole Sodium 40 Mg/10 Ml Vial) 40 mg IVPUSH BID@0630,1630 [facility] Last Admin: 11/02/23 02:04 Dose: Not Given Documented By: NATALIIA Non-Admin Reason: Patient Refused Prochlorperazine Edisylate (Prochlorperazine Edisylate 10 Mg/2 Ml Vial) 5 mg IVPUSH Q4H PRN PRN Reason: Nausea and Vomiting Last Admin: 11/02/23 00:08 Dose: 5 mg Documented By: NATALIIA Sodium Chloride (0.9 % Sodium Chloride Flush 3 Ml Syringe) 3 ml IVFLUSH QSHIFT [facility] Last Admin: 11/01/23 20:22 Dose: 3 ml Documented By: NATALIIA Labs 11/02/23 00:47 11/02/23 00:47 Labs: Laboratory Results - last 24 hr 11/02/23 11/02/23 11/02/23 00:47 02:58 05:06 MCV 95.0 MCH 32.2 MCHC 33.9 RDW 15.4 Plt Count 211 D MPV 10.6 Immature Gran % (Auto) 1.2 H Neut % (Auto) 87.1 H Lymph % (Auto) 7.1 L O'Brien % (Auto) 4.5 Eos % (Auto) 0.0 Baso % (Auto) 0.1 Lymph # (Auto) 0.5 L O'Brien # (Auto) 0.3 Eos # (Auto) 0.0 Baso # (Auto) 0.0 Abs Immat Gran (auto) 0.09 H Absolute Neuts (auto) 6.6 Absolute Nucleated RBC 0.030 H Nucleated RBC % (auto) 0.4 H Hold Purple Top SEE NOTE Anion Gap 23 H Estim Creat Clear Calc 6.0 Estimated GFR 5 Random Glucose 145 H Lactic Acid 2.5 H* Lactic Acid F/U @ 2Hr 2.3 H* Lactic Acid F/U @ 4Hr 1.8 Calcium 8.6 Magnesium 1.9 Total Bilirubin 0.6 AST 10 ALT 9 Alkaline Phosphatase 101 Troponin I High Sens 22.1 H Total Protein 7.0 Albumin 3.6 Microbiology Microbiology Results: Microbiology 10/31/23 16:48 Blood Culture - Preliminary Blood - Venous No growth after 24 hours. 10/31/23 16:42 Blood Culture - Preliminary Blood - Venous No growth after 24 hours. Assessment and Plan (1) End-stage renal disease on hemodialysis: Status: Acute (2) Hypoxic respiratory failure: Status: Acute (3) Influenza A: Status: Acute Plan 77 year old women admitted with resp failure secondary to influenza and possible bronchitis Hypoxic respiratory failure secondary to influenza A and bronchitis On room air this Will start to wean IV steroids Scheduled duonebs empiric azithromycin Tamiflu not started due to symptoms started a week ago Atrial fibrillation with rapid ventricular response Received a dose of oral Lopressor overnight with good effect, continue low-dose beta-uche Patient reports history of atrial fibrillation but not currently on anticoagulation, unclear reason and does not follow with physics technician per her report echo cardiology consult Tachycardia due to atrial fibrillation and not due to sepsis Started on Eliquis acute Lactic acidosis Likely due to breathing treatments. Afebrile, no leukocytosis, does not appear to be due to sepsis Tachycardia due to atrial fibrillation and not due to sepsis one low blood pressure reading due to metoprolol not sepsis Elevated troponin remained flat no chest pain no ischemic changes on EKG Metabolic alkalosis VBG 7.55/40/91/35 likely from renal disease ESRD on dialysis nephro consult to set up dialysis, continue Monday, , Monday schedule Hx of hypotension during dialysis continue prn midodrine Chronic anemia secondary to renal disease DVT prophylaxis with eliquis Full code continue hospitalization for at least 2 midnights for hypoxic respiratory failure treatment with supplemental oxygen, IV steroids and bronchodilator therapy. Quality Stroke Does the patient have a stroke diagnosis?: No VTE Prior VTE?: No VTE Risk Level:: Medical - moderate - high VTE Device Contraindication: Treatment Not Indicated VTE Drug Contraindication: N/A - Med Ordered
[2023-11-02] MEDS: Pantoprazole Sodium 40 MG/10 ML VIAL IVPUSH (15:33)
[2023-11-02] MEDS: 0.9 % Sodium Chloride Flush 3 ML SYRINGE IVFLUSH (15:34)
[2023-11-02 15:35] VITALS: BP 115/57; PULSE 95; RESP 18; TEMP 36.6; O2SAT 94
[2023-11-02 19:14] VITALS: BP 121/71; PULSE 96; RESP 20; TEMP 36.3; O2SAT 99
[2023-11-02] MEDS: Azithromycin 500 MG in 0.9 % Sodium Chloride 250 ML 125 MG IV (20:58)
[2023-11-02] MEDS: Metoprolol Tartrate 12.5 MG HALFTAB PO (21:03)
[2023-11-02] MEDS: Aspirin 81 MG TAB.CHEW PO (21:04)
[2023-11-02] MEDS: Apixaban 2.5 MG TABLET PO (21:04)
[2023-11-02] MEDS: guaiFENesin DM 600/30 1 TAB TAB.ER.12H 2 TAB PO (21:04)
--- NOTE | 2023-11-02 21:41 | CONS_ITS ---
DATE OF SERVICE: 11/02/2023 REASON FOR CONSULTATION: I was asked to see the patient to assist in evaluation and management of patient's dialysis needs. HISTORY OF PRESENT ILLNESS: In summary, the patient is a 77-year-old female, with history of ESRD normally dialyzes Monday, , and Monday at the [facility] and followed by [facility]. The patient complained of several days of a productive cough with shortness of breath and felt feverish. She was admitted to the hospital with concern for pneumonia. She was treated with antibiotics and oxygen. Overall, she is feeling better this morning. PAST MEDICAL HISTORY: As mentioned above includes ESRD, anemia. She suffers with low blood pressures, maintained on midodrine. MEDICATIONS: Her medications on admission noted in the admitting notes. Current medications noted in the MAR. SOCIAL HISTORY: She is nonsmoker, nondrinker. No illicit drug use. PHYSICAL EXAMINATION: VITAL SIGNS: Blood pressure of 120/70 with a heart rate in the 70s. She is afebrile. HEENT: Head is atraumatic and normocephalic. Mucous membranes are moist. LUNGS: Demonstrate some rales at the bases bilaterally. CARDIAC: Regular rate and rhythm without rub. ABDOMEN: Soft, nontender. EXTREMITIES: Shows no edema. LABORATORY DATA: Hemoglobin 11.5, hematocrit 33.9, white blood cell count 7.6, sodium 138, potassium 3.2, chloride 94. IMPRESSION: END-STAGE RENAL DISEASE PATIENT ADMITTED WITH SOME RESPIRATORY DECOMPENSATION. 1. End-stage renal disease. We will dialyze her today, keep her on the Monday, , Monday schedule. 2. Respiratory symptoms. She was started on antibiotics and navas cultured. 3. Anemia. Continue to maintain Epo to keep her hemoglobin in the target range. We will follow the patient closely with the team. I have arranged for dialysis for today. MD CAROLINA Bran/JUAN / [phone]
[2023-11-02 23:20] VITALS: BP 102/69; PULSE 86; RESP 20; TEMP 36.2; O2SAT 96
[2023-11-03 03:30] VITALS: BP 115/61; PULSE 90; RESP 20; TEMP 36.8; O2SAT 96
[2023-11-03] MEDS: methylPREDNISolone Sod Succ 40 MG/ML VIAL IVPUSH ×2 (04:16→12:14)
[2023-11-03] MEDS: 0.9 % Sodium Chloride Flush 3 ML SYRINGE IVFLUSH ×2 (04:16→08:28)
[2023-11-03] MEDS: Pantoprazole Sodium 40 MG/10 ML VIAL IVPUSH (06:26)
[2023-11-03] MEDS: Acetaminophen 325 MG TABLET 650 MG PO (06:26)
[2023-11-03 07:06] VITALS: BP 129/69; PULSE 95; RESP 18; TEMP 36.3; O2SAT 94
[2023-11-03] MEDS: Metoprolol Tartrate 12.5 MG HALFTAB PO (08:27)
[2023-11-03] MEDS: Apixaban 2.5 MG TABLET PO (08:28)
[2023-11-03] MEDS: guaiFENesin DM 600/30 1 TAB TAB.ER.12H 2 TAB PO (08:28)
[2023-11-03 09:22] VITALS: BP 129/69; PULSE 95; O2SAT 94
--- NOTE | 2023-11-03 11:29 | PM.DS ---
DS: Providers Provider Date of Service: 11/03/23 Date of admission: 10/31/23 20:37 Date of discharge: 11/03/23 Primary care physician: Kim Cartagena DO Consults: 10/31/23 20:45 Consult to Nephrology Routine Consulting Provider: [facility] Reason for consultation: ESRD on HD, inpatient dialysis Has provider been notified: No 11/02/23 10:37 Consult to Cardiology [place]ine Consulting [place] [facility] [place] [facility] Reason for consultation: afib rvr Has provider been notified: No Attending physician on discharge: Armando Mcneil Discharging clinician: María Elena Restrepo DS: Diagnosis Discharge Diagnosis (1) End-stage renal disease on hemodialysis: Status: Acute (2) Hypoxic respiratory failure: Status: Acute (3) Influenza A: Status: Acute (4) Atrial fibrillation with rapid ventricular response: Status: Acute DS: Summary Hospital Course Hospital Course: From H&P on the day of admission Ayaka Christina is a 77 years old woman with past medical history significant for ESRD on HD (TTS) presents to the emergency department complaining of 6 day history of productive cough associated with some shortness on breath and subjective fever. She denied any headache, chills or dizziness. She also denied any acute gastrointestinal or genitourinary symptoms. Denies tobacco smoking, alcohol abuse or illicit drug use. There is no history of recent contact with ill people or travel. She had her hemodialysis session today and was completed without complications. In the ED, she was found to have tachypnea and low-grade tachycardia. There is no hypotension. Her oxygen saturation dropped to 88% on room air and currently requiring 2 L/min of supplemental oxygen via nasal cannula. Blood workup showed no leukocytosis. BUN is 27 and creatinine 6.25. CO2 is elevated. LFTs are normal. There is no hyperkalemia or lactic acidosis. Troponin is elevated x2 (30.0 --> 36.1). Venous blood gas does not show respiratory acidosis. CXR showed diffuse increased interstitial lung markings and peribronchial cuffing (small airway disease versus interstitial lung disease versus less likely interstitial edema). Viral testing is positive for influenza. ED tx: Solu-Medrol 125 mg IV, albuterol/p.m. 0.5 mg, Robitussin DM 5 mL p.o. Hypoxic respiratory failure secondary to influenza A and bronchitis She was treated with breathing treatments, systemic steroids and empiric azithromycin. Tamiflu was not started as her symptoms had been ongoing for a week or more prior to presentation. She was able to be weaned off of supplemental oxygen and her breathing improved significantly. She is able to ambulate without shortness of breath. She was evaluated by Physical therapy who recommended home with family support. Atrial fibrillation with rapid ventricular response Patient had been in atrial fibrillation since admission. On the evening of October 31 she was noted to go into atrial fibrillation with rapid ventricular response. She was started on low-dose Lopressor with good effect. She reports a history of atrial fibrillation but is unclear why she was not started on anticoagulation in the past. She was started on Eliquis 5.0 mg b.i.d.. Her blood pressure has remained stable on low dose lopressor. She had echo showing EF 40-45% biatrial enlargement, severely dilated right ventricle with moderately reduced RV systolic function, moderate tricuspid regurgitation. she was seen cardiology who agreed with above management and also recommended to pursue outpatient evaluation for sleep apnea. acute Lactic acidosis Likely due to breathing treatments. Afebrile, no leukocytosis, does not appear to be due to sepsis. Tachycardia due to atrial fibrillation and not due to sepsis Elevated troponin remained flat. no chest pain. no ischemic changes on EKG Time Attestation Total time managing care of this patient today: 38 mintues. Discharge Coordination Time (in mins): 38 Quality: Safe Use of Opioids Does Pt have an Active Cancer Diagnosis on the Problem List?: No Quality: Stroke Does the patient have a stroke diagnosis?: No Physical Exam Vital Signs: Vital Signs: Last Vital Signs Temp 97.4 F 11/03/23 07:06 Pulse 95 11/03/23 09:22 Resp 18 11/03/23 07:06 BP 129/69 11/03/23 09:22 Pulse Ox 94 11/03/23 09:22 O2 Del Method Room Air 11/03/23 07:06 O2 Flow Rate 2 10/31/23 18:19 Oxygen Flow Rate 2 10/31/23 16:21 BMI result Body Mass Index 31.1 Const: General: cooperative, comfortable, alert and awake Nutritional Appearance: overweight Orientation/consciousness: patient oriented x3 Resp: Effort & Inspection: normal respiratory effort, able to speak in complete sentences, no respiratory distress and no use of accessory muscles Cardio: Jugular venous distension: no JVD Rate: regular rate Rhythm: abnormal rhythm irregularly irregular GI: Inspection: No distended Palpation (GI): Soft to palpation and nontender Neuro: General: patient oriented x3, moves all extremities and CN's II-XI intact bilaterally Extrem: General: Yes no pedal edema DS: Data Data Completed and Pending Labs on day of discharge: Preliminary micro results at discharge 10/31/23 16:48 Blood Culture - Preliminary Blood - Venous No growth after 48 hours. 10/31/23 16:42 Blood Culture - Preliminary Blood - Venous No growth after 48 hours. Discharge Plan Discharge Anticipated Discharge Date/Time: 11/03/23 12:06 Patient Disposition: Home, Self-Care Discharge Diagnosis: influenza A atrial fibrillation with rapid ventricular response Moderate tricuspid regurgitation Referrals: Kim Cartagena DO [Primary Care Provider] - 1 Week Discharge Medications: New azithromycin 250 mg tablet 250 mg PO DAILY Qty: 2 0RF metoprolol tartrate 25 mg tablet 12.5 mg PO BID 90 Days Qty: 90 0RF Continued midodrine 5 mg tablet 5 mg PO DAILY PRN (Reason: Hypotension) Rx Instructions: DURING DIAYLSIS prochlorperazine maleate 10 mg tablet 10 mg PO TID PRN (Reason: nausea) cinacalcet 30 mg Tablet 30 mg PO Q48H Discontinued aspirin 81 mg Tablet,Chewable 81 mg PO BEDTIME Activity on Discharge: As tolerated Stand Alone Forms: Patient Portal Discharge page Print Language: Iranian Care Plan Goals: see below Health Concerns: Influenza a bronchitis Atrial fibrillation with rapid ventricular response Tricuspid regurgitation Biatrial enlargement Plan of Treatment: You have been started on a blood thinner called Eliquis due to your history of atrial fibrillation. Monitor for signs of bleeding stop taking baby aspirin now that you will be taking a blood thinner You have been started on low-dose beta uche called Lopressor to help control your heart rate due to history of atrial fibrillation can complete two more days of antibiotics for bronchitis Echocardiogram revealed evidence of tricuspid regurgitation and biatrial enlargement. Recommend outpatient follow up with your PCP to consider evaluation of possible sleep apnea Assessment: see discharge summary
--- NOTE | 2023-11-03 11:31 | PM.CNCAR ---
History of Present Illness History of Present Illness Date of Service: 11/03/23 Requesting physician: María Elena Restrepo Consult reason: atrial fibrillation Chief complaint: Hypoxic Respiratory Failure Narrative: I was consulted to see Ayaka in cardiology consultation today for atrial fibrillation. She has a 77-year-old female who has end-stage renal disease on hemodialysis, question COPD although she denies is chronic disease anemia came to the hospital with shortness of breath. She was noted to have acute hypoxemic respiratory failure with bronchospastic airway disease. She also noted to be in AFib with rapid ventricular response on admission a blood pressure is on the softer side. However since then her blood pressure is stabilized. She says she was diagnosed with atrial fibrillation about a year and half ago and was prescribed aspirin therapy. He she has no prior other history is. Denies any prior history of heart failure, coronary artery disease or vascular disease, stroke, diabetes. Cardiology consult was sought for management of atrial fibrillation. Patient is currently getting low-dose of metoprolol and heart rate is in the 80s. She has no palpitations. She is requesting to go home. She did get a dialysis session yesterday. On dialysis days her blood pressure tends to be low. Review of Systems Constitutional: Constitutional: Reports weakness Eyes: Eyes: Reports no additional eye complaints Cardiovascular: Cardiovascular: Reports no additional cardiovascular complaints and Reports dyspnea on exertion Respiratory: Respiratory: Reports cough, Reports dyspnea on exertion and Reports wheezing Gastrointestinal: Gastrointestinal: Reports no additional gastrointestinal complaints Genitourinary: Genitourinary: Reports no additional female genitourinary complaints Musculoskeletal: Musculoskeletal: Reports no additional musculoskeletal complaints Integumentary/Breasts: Skin/Breast: Reports system reviewed and no additional complaints, except as docu Neurologic: Reports weakness Allergic/Immunologic: Allergic/Immunologic: Reports wheezing [facility] Past Medical History Medical History Chronic disease anemia Hypotension End-stage renal disease on hemodialysis Social History Social History Household Members: Spouse Housing: House Do you presently have visiting nurse or other home services: No Patient Tobacco Use Status: Former Tobacco user service: No Meds Allergies Allergy/AdvReac Type Severity Reaction Status Date / Time gluten Allergy Unknown Verified 11/01/23 06:37 Active Medications: Current Medications Acetaminophen (Acetaminophen 325 Mg Tablet) 650 mg PO Q6H PRN PRN Reason: Pain, Mild (Pain Scale 1-3) Last Admin: 11/03/23 06:26 Dose: 650 mg Apixaban (Apixaban 2.5 Mg Tablet) 2.5 mg PO BID [facility] Last Admin: 11/03/23 08:28 Dose: 2.5 mg Aspirin (Aspirin 81 Mg Tab.Chew) 81 mg PO BEDTIME [facility] Last Admin: 11/02/23 21:04 Dose: 81 mg Benzonatate (Benzonatate 100 Mg Capsule) 200 mg PO TID PRN PRN Reason: Cough Cinacalcet (Cinacalcet Hcl 30 Mg Tablet) 30 mg PO Q48H [facility] Last Admin: 11/01/23 18:15 Dose: 30 mg Guaifenesin/Dextromethorphan (Guaifenesin Dm 600/30 1 Tab Tab.Er.12h) 2 tab PO BID [facility] Last Admin: 11/03/23 08:28 Dose: 2 tab Azithromycin 500 mg/ Sodium (Chloride) 250 mls @ 125 mls/hr IV Q24H [facility] Last Infusion: 11/02/23 23:28 Dose: Infused Levalbuterol HCl (Levalbuterol Hcl 1.25 Mg/3 Ml Vial.Neb) 1.25 mg INHALE Q4H PRN PRN Reason: Wheezing Methylprednisolone Sodium Succinate (Methylprednisolone Sod Succ 40 Mg/Ml Vial) 40 mg IVPUSH Q12H [facility] Last Admin: 11/03/23 04:16 Dose: 40 mg Metoprolol Tartrate (Metoprolol Tartrate 12.5 Mg Halftab) 12.5 mg PO BID [facility]; Protocol Last Admin: 11/03/23 08:27 Dose: 12.5 mg Midodrine (Midodrine Hcl 5 Mg Tablet) 5 mg PO DAILY PRN PRN Reason: hypotension Prochlorperazine Edisylate (Prochlorperazine Edisylate 10 Mg/2 Ml Vial) 5 mg IVPUSH Q4H PRN PRN Reason: Nausea and Vomiting Last Admin: 11/02/23 00:08 Dose: 5 mg Sodium Chloride (0.9 % Sodium Chloride Flush 3 Ml Syringe) 3 ml IVFLUSH QSHIFT [facility] Last Admin: 11/03/23 08:28 Dose: 3 ml Home Medications ?Medication ?Instructions ?Recorded ?Confirmed ?Last Taken ?Type aspirin 81 mg chewable tablet 81 mg PO BEDTIME 10/31/23 10/31/23 Unknown History midodrine 5 mg tablet 5 mg PO DAILY PRN Hypotension 10/31/23 10/31/23 Unknown History prochlorperazine maleate 10 mg 10 mg PO TID PRN nausea 10/31/23 10/31/23 Unknown History tablet cinacalcet 30 mg tablet 30 mg PO Q48H 11/01/23 11/01/23 10/31/23 History Physical Exam Vital Signs: Vital Signs: Last Vital Signs Temp 97.4 F 11/03/23 07:06 Pulse 95 11/03/23 09:22 Resp 18 11/03/23 07:06 BP 129/69 11/03/23 09:22 Pulse Ox 94 11/03/23 09:22 O2 Del Method Room Air 11/03/23 07:06 O2 Flow Rate 2 10/31/23 18:19 Oxygen Flow Rate 2 10/31/23 16:21 BMI result Body Mass Index 31.1 Const: General: cooperative, comfortable, no acute distress, alert and awake Nutritional Appearance: obese Orientation/consciousness: patient oriented x3 Limitations: no limitations HEENT: Head: Yes normocephalic and Yes atraumatic Neck: Neck: Yes trachea midline, Yes supple and Yes no JVD Chest: Chest palpation & inspection: abnormal inspection of the chest kyphotic and scoliotic Resp: Effort & Inspection: normal respiratory effort Auscultation: wheezes scattered wheezes Cardio: Jugular venous distension: no JVD Rate: regular rate Rhythm: abnormal rhythm irregularly irregular Heart sounds: S1 normal heart sound present, S2 normal heart sound present, no click, no gallops and Murmur heart sound present systolic holo and at the right sternal border GI: Auscultation: normal bowel sounds Skin: General skin exam: no rashes or lesions noted Neuro: General: patient oriented x3 and no focal motor deficits Extrem: General: Yes no clubbing, cyanosis or edema Objective Labs and Meds 11/02/23 00:47 11/02/23 00:47 Assessment and Plan (1) Atrial fibrillation with rapid ventricular response: Status: Acute Atrial fibrillation with rapid ventricular response on admission due to hypoxemic respiratory failure in patient with chronic atrial fibrillation. Currently rate is controlled after controlling her respiratory status. I would agree with low-dose metoprolol 12.5 mg b.i.d. and use midodrine on day of dialysis to prevent hypotension. I would also consider oral anticoagulation therapy with Terryis can be on renally adjusted dose. Aspirin to be discontinued. She has a murmur which is suggestive of tricuspid regurgitation which is confirmed by echocardiogram. She has significant biatrial enlargement right greater than left. Workup for obstructive sleep apnea should be pursued as an outpatient. Will sign of the case at this point time. Thank you for allowing me to partake in her care Procedures Date of Service Date of Service: 11/03/23
[2023-11-03 12:00] VITALS: BP 121/61; PULSE 91; RESP 18; TEMP 36.4; O2SAT 95
--- NOTE | 2023-11-03 12:15 | MHC.CM.PN ---
Patient has been medically cleared for dc to home today, self care. Last IMM was addressed on 11/01/2023.
== END 2023-11-03 12:50 | disposition home or self-care (01) | DRG 193 ==
LOC: HO.ED 19:32 → HO.EDOVER 20:46 → HO.IMC 11-01 16:53
PROVIDERS: Admitting Provider Internal Medicine; Emergency Provider Emergency Medicine Emergency Medical Services; PCP Family Medicine; Visit Provider Physician Assistant Medical
DX: J10.1 Influenza due to other identified influenza virus with other respiratory manifestations (principal); J96.01 Acute respiratory failure with hypoxia; N18.6 End stage renal disease; I48.20 Chronic atrial fibrillation, unspecified; E87.3 Alkalosis; E87.21 Acute metabolic acidosis; I07.1 Rheumatic tricuspid insufficiency; I95.3 Hypotension of hemodialysis; J20.8 Acute bronchitis due to other specified organisms; Z99.2 Dependence on renal dialysis; D63.1 Anemia in chronic kidney disease; Z20.822 Contact with and (suspected) exposure to COVID-19; Z91.158 Patient's noncompliance with renal dialysis for other reason; Z79.899 Other long term (current) drug therapy
CPT/HCPCS: 0241U; 36415; 71045; 74176; 80048; 80053; 80076; 82310; 82803; 83605; 83735; 84100; 84484; 85025; 87040; 90999; 93005; 93306; 94640; 97161; 99285; C9113; J0456; J0737; J1644; J2920; J2930; Q9957

== ENCOUNTER → 2023-10-31 16:11 | Outpatient (BNV) | payer MEDICARE, SELFPAY | PROVIDERS: Admitting Provider Internal Medicine; Emergency Provider Emergency Medicine Emergency Medical Services; PCP Family Medicine; Visit Provider Internal Medicine Cardiovascular Disease | DX: R94.31 Abnormal electrocardiogram [ECG] [EKG] (principal) | CPT/HCPCS: 93010 ==

== ENCOUNTER 2023-10-31 20:37 | Outpatient (BNV) | payer MEDICARE, SELFPAY | END 2023-11-02 00:35 | PROVIDERS: Admitting Provider Internal Medicine; Emergency Provider Emergency Medicine Emergency Medical Services; PCP Family Medicine; Visit Provider Internal Medicine Cardiovascular Disease | DX: I48.91 Unspecified atrial fibrillation (principal) | CPT/HCPCS: 93010; 93306 ==

== ENCOUNTER 2023-10-31 20:37 | Outpatient (BNV) | payer MEDICARE, SELFPAY | END 2023-11-01 20:25 | PROVIDERS: Admitting Provider Internal Medicine; Emergency Provider Emergency Medicine Emergency Medical Services; PCP Family Medicine; Visit Provider Internal Medicine Cardiovascular Disease | DX: R94.31 Abnormal electrocardiogram [ECG] [EKG] (principal) | CPT/HCPCS: 93010 ==

== ENCOUNTER → 2023-10-31 20:37 | Outpatient (BNV) | payer MEDICARE, SELFPAY | PROVIDERS: Admitting Provider Internal Medicine; Emergency Provider Emergency Medicine Emergency Medical Services; PCP Family Medicine; Visit Provider Internal Medicine | DX: N18.6 End stage renal disease (principal); Z99.2 Dependence on renal dialysis; J96.01 Acute respiratory failure with hypoxia; J10.1 Influenza due to other identified influenza virus with other respiratory manifestations; I48.91 Unspecified atrial fibrillation | CPT/HCPCS: 99223; 99233; 99239; 99499 ==

== ENCOUNTER → 2023-10-31 20:37 | Outpatient (BNV) | payer MEDICARE, SELFPAY | PROVIDERS: Admitting Provider Internal Medicine; Emergency Provider Emergency Medicine Emergency Medical Services; PCP Family Medicine; Visit Provider Internal Medicine Cardiovascular Disease | DX: I48.91 Unspecified atrial fibrillation (principal) | CPT/HCPCS: 99222 ==